=== PATIENT | female | born 1975 | race Caucasian/White ===

== ENCOUNTER 2020-07-09 09:47 | Outpatient (CLI) | payer BC, SELFPAY ==
--- NOTE | ~2020-07-09 | US_ITS ---
EXAMINATION: US venous doppler [facility] DATE: 07/09/2020 11:18 INDICATION: Left lower limb pain TECHNIQUE: Grayscale ultrasound images without and with compression and Doppler ultrasound images of the left lower extremity veins were obtained. COMPARISON: 01/12/2010 FINDINGS: The visualized portions of left common femoral vein, profunda (deep) femoral vein, femoral vein, popl iteal vein, peroneal veins, posterior tibial veins, gastrocnemius vein and greater saphenous vein out flow are patent. No abnormal mass or fluid collections identified at the region of concern at the [facility] ia mid calf. IMPRESSION: 1. No deep venous thrombosis in the left lower limb. Reviewed, dictated and finalized at location A.
== END 2020-07-09 09:48 | disposition home or self-care (01) ==
PROVIDERS: PCP Internal Medicine; Visit Provider Nurse Practitioner Family
DX: M79.89 Other specified soft tissue disorders (principal); M79.605 Pain in left leg
CPT/HCPCS: 93971

== ENCOUNTER 2020-08-06 01:21 | Emergency (ER) | payer BC, SELFPAY ==
--- NOTE | ~2020-08-06 | XR_ITS ---
Corrected Report Wrong V # Order # associated 08/10/2020 [facility] EXAMINATION: XR chest 1V portable DATE: 08/06/2020 03:48 INDICATION: Chest pain. TECHNIQUE: A single frontal view of the chest was obtained. COMPARISON: None. FINDINGS: The chest demonstrates clear lungs without pneumonia, pleural effusion, or pneumothorax. The heart size is normal. IMPRESSION: 1. No acute cardiopulmonary disease. Reviewed, dictated and finalized at location A. ER RAY
--- NOTE | 2020-08-06 01:37 | ECG_ITS ---
Measurements Intervals [place] Rate: 58 P: 75 MT: 158 QRS: 230 QRSD: 105 T: 63 QT: 390 QTc: 385 Interpretive Statements SINUS BRADYCARDIA INCOMPLETE RIGHT BUNDLE BRANCH BLOCK BORDERLINE ECG Electronically Signed On 08-11-2020 13:11:38 BOTTOM PRESSER by Eric Reagan D.O.
--- NOTE | 2020-08-06 01:40 | ED.GENADULT ---
HPI - General Adult General Time Seen by Provider: 08/06/20 03:47 History of Present Illness HPI narrative: Patient is a 45-year-old female who presents the emergency department with chief complaint of chest pain. The patient states for the last 3 weeks has been having intermittent episodes of midsternal chest discomfort that radiates to her right shoulder. Patient reports she has been under a lot of stress reports she is seen her primary care physician is scheduled for a echo in the next few days. Patient states that she is attempted to take Ativan for this but states that it makes it feel as though she is going to whenever she takes that she is also tried BuSpar and this makes her have worsening anxiety. Patient reports that she has no significant family history for early cardiac disease states that her brother had dysrhythmia and had to have ablation. Related Data Allergies Allergy/AdvReac Type Severity Reaction Status Date / Time azithromycin Allergy Unknown Verified 05/16/12 10:36 procaine Allergy Unknown HIVES Verified 11/05/16 15:13 FLU SHOT Allergy Unknown TONGUE Uncoded 01/29/14 15:31 SWELLING Z PACK Allergy Unknown SKIN Uncoded 01/29/14 15:31 PEELING, TONGUE SWELLING Review of Systems Review of Systems: Narrative: CONSTITUTIONAL: Denies fever, chills, or sweats. EYES: Denies visual changes, redness, or discharge. ENT: Denies rhinorrhea, congestion, sore throat, or otalgia. CARDIOVASCULAR: Denies chest pain, palpitations, or edema. RESPIRATORY: Denies cough or dyspnea. GASTROINTESTINAL: Denies abdominal pain, nausea, vomiting, or diarrhea. GENITOURINARY: Denies dysuria or hematuria. SKIN: Denies rash or itching. MUSCULOSKELETAL: Denies back pain, joint pain, or myalgia. NEUROLOGIC: Denies headache, numbness, or weakness. PSYCHIATRIC: Denies anxiety or depression. All systems reviewed & are unremarkable except as noted in HPI and below PMFSH Family History Family History Mother Hypertension Father Patient's father is in good health Social History Social History Smoking end date: 09/17/09 Alcohol intake: current Comments Patient reports she has prior history of anxiety and surgical history for knee surgery Patient reports that she smoked up until 3 weeks ago Exam Narrative: Exam Narrative: GENERAL: Well-appearing, well-nourished, and in no acute distress. HEAD: Normocephalic, atraumatic. EYES: PERRLA and EOMI. ENT: Nares clear, no rhinorrhea or epistaxis. Mucous membranes moist. NECK: Supple. CHEST: Clear to auscultation. No respiratory distress. HEART: Regular rate and rhythm. No murmur heard. Normal peripheral pulses. ABDOMEN: Soft, nontender, nondistended, normal active bowel sounds. EXTREMITIES: Normal range of motion. No edema. SKIN: Warm, dry, no rash. NEURO: No focal deficits. Alert and oriented x3. PSYCH: Normal mood and affect. Course Course Emergency Course: EKG is sinus rhythm rate of [address] elevation or ST depression Laboratory studies were obtained on the patient which showed no acute abnormalities Discharge Plan Discharge Clinical Impression: Atypical chest pain, Anxiety Patient Disposition: Home, Self-Care Condition: Stable Instructions: Antibiotic Form Follow-up/Referrals: KEVIN,ELLIOT GREEN [Primary Care Provider] - Time of Disposition: 03:15 Quality HEART score for chest pain patients History: slightly suspicious ECG: normal Age: < or = to 45 years Risk factors: 1 or 2 risk factors Troponin: < or = to 1x normal limit Heart score: 1
[2020-08-06 03:55] LABS: Basophils Percent Auto 0.4 % (0.2-1.2); Eosinophils Absolute Auto 0.2 K/mm3 (0-0.3); Eosinophils Percent Auto 1.8 % (0-4.4); Hematocrit 42.3 % (37.0-47.0); Hemoglobin 14.1 g/dL (12.0-15.0); Immature Granulocyte Absolute 0.04 K/mm3 (0.00-0.031); Immature Granulocyte Percent A 0.4 % (0-0.5); Immature Platelet Fraction Pct 3.4 % (0.9-11.2); Lymphocytes Absolute Auto 2.83 K/mm3 (0.9-3.2); Lymphocytes Percent Auto 31.5 % (18.3-44.2); Mean Corpuscular HGB Conc 33.3 g/dl (32-36); Mean Corpuscular Hemoglobin 29.7 pg (26-34); Mean Corpuscular Volume 89.2 fl (80-100); Mean Platelet Volume 10.4 fl (7.4-10.4); Monocytes Absolute Auto 0.7 K/mm3 (0.1-0.6); Monocytes Percent Auto 7.5 % (2.6-8.5); Neutrophils Absolute Auto 5.3 K/mm3 (1.3-6.7); Neutrophils Percent Auto 58.4 % (45.5-73.1); Platelet Count Result 291 k/mm3 (150-375); Red Blood Count 4.74 M/mm3 (4.2-5.4); Red Cell Distribution Width 12.8 % (11.5-14.5)
[2020-08-06 03:57] LABS: Alanine Aminotransferase 19 U/L (4-35); Albumin Level 4.4 g/dL (3.5-5.1); Alkaline Phosphatase 47 U/L (38-126); Anion Gap 7 mmol/L (8-16); Aspartate Amino Transferase 28 U/L (14-36); Bilirubin,Total 0.4 mg/dL (0.2-1.3); Blood Urea Nitrogen 11 mg/dL (7-17); Calcium 9.2 mg/dL (8.4-10.2); Carbon Dioxide 29 mmol/L (22-30); Chloride 103 mmol/L (98-107); Estimated Glomerular Filt Rate > 60; Glucose 99 mg/dL (65-105); Lipase 60 U/L (23-300); Potassium 3.7 mmol/L (3.4-5.0); Sodium 139 mmol/L (137-145); Troponin I < 0.012 ng/mL (0.000-0.034)
[2020-08-06 04:58] LABS: D Dimer 0.27 ug/mL (<0.48); INR 0.9; Partial Thromboplastin Time 31.1 SECONDS (22.3-36.8); Prothrombin Time 12.2 Seconds (11.1-14.7)
== END 2020-08-06 03:50 | disposition home or self-care (01) ==
PROVIDERS: Emergency Provider Emergency Medicine; PCP Nurse Practitioner Family
DX: R07.89 Other chest pain (principal); F41.9 Anxiety disorder, unspecified; Z87.891 Personal history of nicotine dependence; R00.1 Bradycardia, unspecified; I45.10 Unspecified right bundle-branch block
CPT/HCPCS: 36415; 71045; 80053; 83690; 84484; 85025; 85055; 85380; 85610; 85730; 93005; 99284

== ENCOUNTER 2021-07-18 10:51 | Outpatient (CLI) | payer OTHER, SELFPAY ==
[2021-07-18 11:37] LABS: Hematocrit 42.4 % (37.0-47.0); Hemoglobin 14.4 g/dL (12.0-15.0)
== END 2021-07-18 10:52 | disposition home or self-care (01) ==
LOC: ANHSURGERY 10:56
PROVIDERS: Anesthesiology; PCP Nurse Practitioner Family; Visit Provider Obstetrics & Gynecology
DX: D64.9 Anemia, unspecified (principal); N83.209 Unspecified ovarian cyst, unspecified side
CPT/HCPCS: 36415; 85014; 85018; 86850; 86900; 86901

== ENCOUNTER 2021-07-22 02:54 | Day surgery (SDC) | payer OTHER, SELFPAY ==
[2021-07-14 12:06] VITALS: BMI 30.2
--- NOTE | 2021-07-19 14:13 | PM.IMHP ---
H&P: HPI History of Present Illness Date/Time: 07/19/21 14:13 [age] female admitted with severe right-sided pain she has an ultrasound which shows what appears to be a dermoid cyst the right. She also has a fibroid uterus but did not desire treatment for. She is admitted for right cystectomy probable right salpingo-oophorectomy secondary to this large dermoid cyst. Risks and benefits reviewed in full Chief Complaint: Pelvic pain right sided pelvic mass Review of Systems Review of Systems: All systems reviewed & are unremarkable except as noted in HPI and below PMFSH Family History Family History Mother Hypertension Father Patient's father is in good health Social History Social History Smoking packs per day: 0.75 Smoking cigarettes per day: 15.0 Years smoked: 20 Smoking pack-years: 15.00 Smoking status: Current every day smoker Tobacco type: cigarettes Smoking end date: 09/17/09 Alcohol intake: current Alcohol use details: RARE Substance use: never Substance use type: does not use Spiritual care concerns: No Meds Home Medications and Allergies Home Medications Medication Instructions Recorded Confirmed Type ascorbic acid (vitamin C) [Vitamin 500 mg PO DAILY 07/14/21 07/14/21 History C] cholecalciferol (vitamin D3) 50 mcg PO DAILY 07/14/21 07/14/21 History [Vitamin D3] ferrous sulfate [Iron (ferrous 325 mg PO DAILY 07/14/21 07/14/21 History sulfate)] pantoprazole 40 mg PO QAM 07/14/21 07/14/21 History Allergies Allergy/AdvReac Type Severity Reaction Status Date / Time azithromycin Allergy Unknown Anaphylaxis Verified 07/14/21 12:04 procaine Allergy Unknown HIVES Verified 07/14/21 12:04 acetaminophen [From Percocet] AdvReac Nausea and Verified 07/14/21 12:06 Vomiting oxycodone [From Percocet] AdvReac Nausea and Verified 07/14/21 12:06 Vomiting FLU SHOT Allergy Unknown TONGUE Uncoded 07/14/21 12:04 SWELLING Z PACK Allergy Unknown SKIN Uncoded 07/14/21 12:04 PEELING, TONGUE SWELLING Exam Const: General: no acute distress Eyes: General: appearance normal, both eyes and all related structures Neck: Neck: supple and no JVD Thyroid: thyroid normal Resp: Effort & Inspection: normal respiratory effort Auscultation: clear to auscultation bilaterally Cardio: Rate: regular rate Rhythm: regular rhythm GI: Inspection: non-distended GI Palp: Yes Soft to palpation, No Tenderness to palpation present (GI) and No Guarding due to palpation present (GI) Auscultation: normal bowel sounds : External Female Exam: normal external appearance Speculum Exam - Vagina: normal appearance of the vagina Bimanual exam- vagina & uterus: enlarged Bimanual Exam- Adnexa, other: tender on the right and Adnexal mass present on the right tender Skin: General skin exam: no rashes or lesions noted Extrem: General: normal to inspection and no edema Psych: Mental Status: mental status grossly normal Affect: normal affect Assessment and Plan Additional Plan Impression complex right ovarian cyst Plan laparoscopic right cystectomy possible right salpingo-oophorectomy
[2021-07-22] VITALS (8 sets, daily range): BP systolic 103–133; BP diastolic 65–78; PULSE 48–77; RESP 11–15; TEMP 36.4–36.6; O2SAT 97–100; BMI 31.1
--- NOTE | 2021-07-22 06:59 | WPDHPUPDATE1 ---
History and Physical Update Update Date/Time: 07/22/21 06:59 History and Physical has been reviewed, including an updated exam of the patient. There are NO changes in the patient's condition. Risks, benefits, and alternatives have been discussed and questions answered. Patient agrees to proceed with procedure.
--- NOTE | 2021-07-22 12:48 | WPDANESEPPF ---
Anes - Initial Pre Proc Eval Procedure: Operation Date: 07/22/21 14:00 Proposed Procedures p Laparoscopy, Right Ovarian Cystectomy, Possible Right Salpingo-Oophorectomy - Bill Matute MD Date/Time: 07/22/21 12:48 Surgeon: Bill Matute MD Pre Op Diagnosis: right ovarian mass, pelvic pain Patient Data Age: 46 Gender: F Height: 1.58 m Weight: 75.75 kg Allergies Allergy/AdvReac Type Severity Reaction Status Date / Time azithromycin Allergy Unknown Anaphylaxis Verified 07/14/21 12:04 procaine Allergy Unknown HIVES Verified 07/14/21 12:04 acetaminophen [From Percocet] AdvReac Nausea and Verified 07/14/21 12:06 Vomiting oxycodone [From Percocet] AdvReac Nausea and Verified 07/14/21 12:06 Vomiting FLU SHOT Allergy Unknown TONGUE Uncoded 07/14/21 12:04 SWELLING Z PACK Allergy Unknown SKIN Uncoded 07/14/21 12:04 PEELING, TONGUE SWELLING Home Medications Medication Instructions Recorded Confirmed Type ascorbic acid (vitamin C) [Vitamin 500 mg PO DAILY 07/14/21 07/14/21 History C] cholecalciferol (vitamin D3) 50 mcg PO DAILY 07/14/21 07/14/21 History [Vitamin D3] ferrous sulfate [Iron (ferrous 325 mg PO DAILY 07/14/21 07/14/21 History sulfate)] pantoprazole 40 mg PO QAM 07/14/21 07/14/21 History Patient hx anesthesia problems: none Family hx anesthesia problems: none Results Review: All pre-operative results and documents have been reviewed as part of the pre-operative evaluation. [facility] Past Medical History Medical History Anemia Asthma GERD (gastroesophageal reflux disease) DARBY (obstructive sleep apnea) Family History Family History Mother Hypertension Father Patient's father is in good health Social History Social History Smoking packs per day: 0.75 Smoking cigarettes per day: 15.0 Years smoked: 20 Smoking pack-years: 15.00 Smoking status: Current every day smoker Tobacco type: cigarettes Smoking end date: 09/17/09 Alcohol intake: current Alcohol use details: RARE Substance use: never Substance use type: does not use Living arrangements: with family Spiritual care concerns: No Anes - Eval Final PreProcedure Day of Procedure 07/22/21 12:48 Patient weight: obese Heart: regular rate and rhythm Lungs: decreased breath sounds Airway: Mallampati scale class II Neurological: alert and oriented Last oral intake: >/= 8 hours ASA classification: III Emergent: no Anesthetic plan: proceed Anesthesia type and monitoring: general ETT and standard monitoring Results Review: All pre-operative results and documents have been reviewed as part of the pre-operative evaluation. Informed Consent: The patient's anesthetic plan and its attendant risks and benefits were discussed with the patient/family/POA. Questions were solicited and answers provided to the satisfaction of the patient/family/POA.
[2021-07-22] MEDS: LACTATED RINGERS 1,000 ML 30 ML IV CONT (13:15)
[2021-07-22] MEDS: KETOROLAC 15 MG/ML VIAL (*BKC) IV PUSH (13:30)
[2021-07-22] MEDS: ACETAMINOPHEN 500 MG TABLET 1000 MG PO (13:30)
[2021-07-22] MEDS: SCOPOLAMINE 1.5 MG PATCH TRANSDERM (13:31)
--- NOTE | 2021-07-22 14:21 | P.OP_ITS ---
Procedure Note - Detailed Date of Procedure 07/22/21 Pre-op Diagnosis right ovarian mass, pelvic pain Post-op Diagnosis same Procedure Performed Laparoscopic right oophorectomy Surgeon Bill Matute MD Anesthesia general Indications This is a 46-year-old female with suspected dermoid cyst on the right. She also has a history of fibroids but did not wish for the removal of the uterus Findings Fibroid uterus seen. Normal left ovary and tube. A large right benign- appearing dermoid cyst on the right Description of Procedure The patient was prepped draped in the normal sterile fashion placed in dorsal li thotomy position. Under excellent general endotracheal anesthesia weighted speculum placed in posterior fornix vagina. Anterior lip of the cervix grasped with single-tooth tenaculum the Robles's cannula inserted to the cervix and attached to the single-tooth. These were to be used later for uterine manipulation. The weighted speculum was removed and the bladder drained of clear urine. The gloves were changed An infraumbilical incision made the Veress needle passed in the abdomen. The abdomen filled with CO2 gas [id number]. The 5mm trocar advanced under direct visualization assuring no injury. Patient placed in Trendelenburg and a suprapubic incision made. The 5mm trocar advanced under direct visualization assuring no injury. A right lower quadrant incision made the 10mm trocar adv anced under direct visualization assuring no injury. The large right ovarian cyst appeared to be a dermoid was benign and nature the infundibulopelvic structure was skeletonized clamped with the LigaSure burned and placed in an Endo-Catch hemostasis was assured this was removed piecemeal through of Endo- Catch bag to the right lower quadrant incision irrigation undertaken until clear no other abnormalities were seen there was a large fibroid on the uterus. The gallbladder appeared within normal limits this is to the liver edge. The gas removed from the abdomen and the lower site and upper sites removed. Incisions closed with 4 Monocryl glue. Patient was awakened and went to recovery in satisfactory condition. All sponge, needle, instrument counts were correct. There were no immediate complications Estimated Blood Loss 5 Drains No Packing No Pathology yes Complications No immediate complications Condition stable Disposition PACU
[2021-07-22] MEDS: fentaNYL CITRATE INJ (*CRX) 100 MCG/2 ML VIAL 25 MCG IV PUSH ×2 (14:58→15:10)
== END 2021-07-22 16:28 | disposition home or self-care (01) ==
PROVIDERS: PCP Nurse Practitioner Family; Visit Provider Obstetrics & Gynecology
PROC: (CPT 49320; principal; 2021-07-22 14:00)
DX: D27.0 Benign neoplasm of right ovary (principal); R10.2 Pelvic and perineal pain; D25.9 Leiomyoma of uterus, unspecified; D64.9 Anemia, unspecified; J45.909 Unspecified asthma, uncomplicated; K21.9 Gastro-esophageal reflux disease without esophagitis; G47.33 Obstructive sleep apnea (adult) (pediatric); F17.210 Nicotine dependence, cigarettes, uncomplicated; E66.9 Obesity, unspecified; Z68.31 Body mass index [BMI] 31.0-31.9, adult
CPT/HCPCS: 58661; 88305; 88307; A9270; J1885; J2250; J2405; J2704; J3010; J7030; J7120

== ENCOUNTER 2022-03-16 09:54 | Outpatient (CLI) | payer OTHER, SELFPAY ==
--- NOTE | ~2022-03-16 | MM_ITS ---
EXAMINATION: MM screening apurva BI w meg HISTORY: Screening TECHNIQUE: Craniocaudal and mediolateral oblique 3-D tomosynthesis images were obtained and synthetic 2-D images were generated. CAD analysis was submitted and interpreted. COMPARISON: No prior mammogram is available for comparison at this institution. BREAST PARENCHYMAL COMPOSITION: The breasts are heterogenously dense, which may obscure small masses FINDINGS: There are scattered bilateral breast asymmetries. There is a focal mass in the left periare olar location. IMPRESSION: 1. Bilateral breast asymmetries. Left periareolar mass. 2. Additional mammographic views and possible breast ultrasound are recommended. BI-RADS Category 0: Incomplete: Needs additional imaging evaluation. Reviewed, dictated and finalized at location A. IMPRESSION: 1. Bilateral breast asymmetries. Left periareolar mass. 2. Additional mammographic views and possible breast ultrasound are recommended . BI-RADS Category 0: Incomplete: Needs additional imaging evaluation.
== END 2022-03-16 09:55 | disposition home or self-care (01) ==
PROVIDERS: PCP Nurse Practitioner Family; Visit Provider Obstetrics & Gynecology
DX: Z12.31 Encounter for screening mammogram for malignant neoplasm of breast (principal); R92.8 Other abnormal and inconclusive findings on diagnostic imaging of breast
CPT/HCPCS: 77063; 77067

== ENCOUNTER 2022-12-18 12:27 | Outpatient (CLI) | payer BC, SELFPAY ==
--- NOTE | ~2022-12-18 | MMUS_ITS ---
EXAMINATION: MM diagnostic apurva BI w meg, US breast BI complete HISTORY: Bilateral breast asymmetries and left periareolar mass reported on 03/16/2022 screening mammo gram TECHNIQUE: Bilateral ML, MLO and CC and spot left 3-D tomosynthesis images were performed and synthet ic 2-D images were generated. CAD analysis was submitted and interpreted. High resolution complete bi lateral breast ultrasound examination including all 4 quadrants and subareolar area was performed. COMPARISON: 03/16/2022 bilateral screening mammogram BREAST PARENCHYMAL COMPOSITION: The breasts are heterogeneously dense, which may obscure small masses . FINDINGS: MAMMOGRAPHIC FINDINGS: Approximately 1.7 x 3.2 cm superficial subcutaneous circumscribed left lateral periareolar mass is ag ain noted, stable since 03/16/2022. Approximately 1.3 x 2.8 cm mass is suggested in the mid outer right breast. Additional masses may be obscured by the heterogeneously dense stroma. No architectural distortion, malignant calcification, skin thickening or retraction of either breast is detected. ULTRASOUND: Right breast: 3:00 4 cm from nipple: 3.8 x 3.5 circumscribed cyst Left breast: 12:00 3 cm from nipple: Multi septated approximately 5 x 7.4 x 7 mm cyst 3:00 near nipple: Corresponding to the mammographic mass is a 3.6 x 1.37 cm heterogeneous hypoechoic solid mass with some internal vascularity. There is through transmission, no posterior shadowing. Ult rasound-guided biopsy is recommended. IMPRESSION: 1. Approximately 1.37 x 3.6 cm superficial circumscribed solid mass with internal vascularity in the lateral periareolar area at 3:00 near nipple 2. Ultrasound-guided biopsy of lateral periareolar mass (3:00 near nipple) is recommended BI-RADS category 4, suspicious findings. Reviewed, dictated and finalized at location A. IMPRESSION: 1. Approximately 1.37 x 3.6 cm superficial circumscribed solid mass with business analyst intern al vascularity in the lateral periareolar area at 3:00 near nipple 2. Ultrasound-guided biopsy of lateral periareolar mass (3:00 near nipple) is r ecommended BI-RADS category 4, suspicious findings.
== END 2022-12-18 12:28 | disposition home or self-care (01) ==
LOC: ANHIMG 12:29
PROVIDERS: PCP Nurse Practitioner Family; Visit Provider Obstetrics & Gynecology
DX: R92.8 Other abnormal and inconclusive findings on diagnostic imaging of breast (principal)
CPT/HCPCS: 76641; 77062; 77066; G0279

== ENCOUNTER 2023-01-04 11:18 | Outpatient (CLI) | payer BC, SELFPAY ==
--- NOTE | ~2023-01-04 | MMUS_ITS ---
EXAMINATION: US breast biopsy LT w image, MM post biopsy invasive LT DATE: 01/04/2023 13:08 (accession [id number]), 01/04/2023 13:01 (accession [id number]) INDICATION: Mass of the outer left breast near the nipple. Ultrasound-guided core biopsy is requested to evaluate for malignancy. TECHNIQUE AND FINDINGS: The risks and potential benefits of the procedure were discussed with the patient including bleeding and infection. A time out was performed. The skin of the left breast was prepared and draped in usual sterile fashion. 1% lidocaine was used for superficial anesthesia. 1% lidocaine with epinephrine was used for deep anesthesia. A vacuum-assisted biopsy needle was advanced through to the outer edge of the region of interest from an inferolateral approach utilizing sonographic guidance. A total of three tissue core samples were obtained through the lesion. A tissue marker clip was then placed at the biopsy site. Hemostasis was achieved. A sterile bandage was applied. The patient tolerated procedure well and there was no evidence of immediate complication. The patient was given verbal instructions to return to the Emergency Department in the event of severe breast pa in or rapid breast enlargement. A two view left breast mammogram was obtained to document tissue regi er clip placement. IMPRESSION: 1. Successful ultrasound-guided vacuum-assisted biopsy of left breast mass with tissue marker placeme nt. Reviewed, dictated and finalized at location A. IMPRESSION: 1. Successful ultrasound-guided vacuum-assisted biopsy of left breast mass with tissue marker placement.
== END 2023-01-04 11:19 | disposition home or self-care (01) ==
PROVIDERS: PCP Nurse Practitioner Family; Visit Provider Obstetrics & Gynecology
DX: N63.25 Unspecified lump in the left breast, overlapping quadrants (principal)
CPT/HCPCS: 19083; 88305; A4648